=== PATIENT | male | born 1985 | race Caucasian/White ===

== ENCOUNTER 2020-09-07 22:42 | Emergency (ER) | payer OTHER ==
[2020-09-08] MEDS ORDERED: Lidocaine 1% w/Epinephrine 1:100K 20 ML VIAL ONE (00:04)
[2020-09-08] MEDS ORDERED: Boostrix 0.5 ML (Tdap) VIAL ONE (00:17)
[2020-09-08] MEDS ORDERED: Bacitracin 1 PK ONE (00:39)
== END 2020-09-08 00:49 | disposition home or self-care (01) ==
LOC: MADERS 22:42
DX: S51.811A Laceration without foreign body of right forearm, initial encounter (principal); Z79.899 Other long term (current) drug therapy; W25.XXXA Contact with sharp glass, initial encounter
CPT/HCPCS: 12002; 90471; 90715

== ENCOUNTER 2022-01-29 15:53 | Emergency (ER) | payer OTHER | END 2022-01-29 17:20 | disposition home or self-care (01) | LOC: MADERS 15:53 | DX: S76.812A Strain of other specified muscles, fascia and tendons at thigh level, left thigh, initial encounter (principal); X50.9XXA Other and unspecified overexertion or strenuous movements or postures, initial encounter; Y93.02 Activity, running; Y92.009 Unspecified place in unspecified non-institutional (private) residence as the place of occurrence of the external cause ==